=== PATIENT | female | born 1945 | race Caucasian/White ===

== ENCOUNTER 2018-10-05 12:56 | Outpatient (REF) | payer MEDICARE, SELFPAY ==
[2018-10-05 20:14] LABS: Bilirubin Negative (Negative); Blood Trace-intact (Negative); Clarity Clear; Glucose Negative (Negative); Ketones Negative (Negative); Leukocyte Esterase Negative (Negative); Nitrite Positive (Negative); Specific Gravity 1.015 (1.005-1.025); Urobilinogen 0.2 EU/dL (Up TO 0.2)
[2018-10-05 20:33] LABS: Bacteria Many HPF (Negative); Casts Negative LPF (Negative); Crystals Negative HPF (Negative); Epithelial Cells Negative HPF (Negative); Mucus Negative (Negative); RBC Negative (0-2)
[2018-10-05 20:34] LABS: C & S Indicated? Yes
[2018-10-05 20:35] LABS: Anion Gap 10.2 mmol/L (3-11); BUN 23 mg/dL (7-18); CO2 29.8 mmol/L (21.0-32.0); CREATININE 0.79 mg/dL (0.55-1.02); Calcium 9.3 mg/dL (8.5-10.1); Chloride 103 mmol/L (98-107); Cholesterol 272 mg/dL (50-200); Glucose 87 mg/dL (70-100); HDL Cholesterol 65 mg/dL (40-60); LDL CHOLESTEROL 172 mg/dL (<100); Sodium 143 mmol/L (136-145); TSH (W/Ref FT4) 1.91 uIU/mL (0.358-3.74); Triglyceride 112 mg/dL (30-150)
[2018-10-08 10:11] LABS: Hepatitis C Ab w Rflx HCV PCR Negative (NEGAT)
== END 2018-10-05 13:16 ==
LOC: NCHCN 12:56
PROVIDERS: PCP Internal Medicine; Visit Provider Internal Medicine
DX: I10 Essential (primary) hypertension (principal); Z11.59 Encounter for screening for other viral diseases
CPT/HCPCS: 80048; 80061; 83721; 86803; 87077; 81003; 81015; 84443; 87086; 87186

== ENCOUNTER 2018-10-11 00:38 | Outpatient (CLI) | payer MEDICARE, SELFPAY ==
--- NOTE | 2018-10-11 10:00 | DI.MAMMO_ITS ---
SYMPTOMS/DIAGNOSIS: SCREENING, Z12.39 MAMMOGRAMS: Mammograms were interpreted according to the usual protocol including computer analysis with CAD system, tomosynthesis and C view imaging. The breasts are of moderate density with fairly symmetrical distribution of fibroglandular tissue. No dominant mass or clumped microcalcification is identified in either breast. There is an area of focal asymmetric density projecting in the central portion of the right breast on MLO view. No previous images available for comparison. Additional mammographic views of the right breast requested to rule out a mass or architectural distortion at this site. CONCLUSION: Additional mammographic views of the right breast requested as described above to include MLO spot compression view of the right breast. Breast ultrasound may be indicated as well depending on the results of the additional mammographic views. Category 0, breast density category B. MQSA ASSESSMENT OF FINDINGS: Incomplete: Needs additional imaging evaluation. Category 0. Patient will receive a letter notifying them of these results. BI-RADS category B. There are scattered areas of fibroglandular density.
== END 2018-10-11 00:58 ==
PROVIDERS: PCP Internal Medicine; Visit Provider Internal Medicine
DX: Z12.31 Encounter for screening mammogram for malignant neoplasm of breast (principal); R92.8 Other abnormal and inconclusive findings on diagnostic imaging of breast
CPT/HCPCS: 77063; 77067

== ENCOUNTER 2018-10-18 00:23 | Outpatient (CLI) | payer MEDICARE, SELFPAY ==
--- NOTE | 2018-10-18 10:04 | DI.COMBO_ITS ---
SYMPTOM/DIAGNOSIS: F/U MAMMO, ASYMMETRICAL DENSITY RT BREAST RIGHT BREAST ADDITIONAL VIEW AND RIGHT BREAST ULTRASOUND: Additional images are interpreted according to the usual protocol including tomosynthesis and 2D imaging. Additional mammographic views of the right breast and right breast ultrasound are interpreted in conjunction. These examinations were obtained to evaluate a questionable area of asymmetric density seen on recent mammogram. Additional mammographic views fail to show a discrete mass. Breast ultrasound shows no evidence of a mass or cyst. CONCLUSION: No specific evidence of malignancy at this time. A follow up unilateral right breast mammogram is recommended in 6 months. Category 3. Breast density, category B. MQSA ASSESSMENT OF FINDINGS: Probably benign. Six month follow-up recommended. Category 3. Patient will receive a letter notifying them of these results. BI-RADS category B. There are scattered areas of fibroglandular density.
== END 2018-10-18 00:43 ==
PROVIDERS: PCP Internal Medicine; Visit Provider Internal Medicine
DX: Z12.31 Encounter for screening mammogram for malignant neoplasm of breast (principal); R92.8 Other abnormal and inconclusive findings on diagnostic imaging of breast; N64.59 Other signs and symptoms in breast
CPT/HCPCS: 76642; 77063; 77067

== ENCOUNTER 2019-02-07 08:21 | Outpatient (REF) | payer MEDICARE, SELFPAY ==
[2019-02-07 11:59] LABS: Anion Gap 10.6 mmol/L (3-11); BUN 21 mg/dL (7-18); CO2 27.4 mmol/L (21.0-32.0); CREATININE 0.95 mg/dL (0.55-1.02); Calcium 8.5 mg/dL (8.5-10.1); Calculated LDL 95 mg/dL; Chloride 106 mmol/L (98-107); Cholesterol 176 mg/dL (50-200); Estimated GFR 57.82 (mL/min/1.73m2); Glucose 87 mg/dL (70-100); HDL Cholesterol 71 mg/dL (40-60); Potassium 3.6 mmol/L (3.5-5.1); Sodium 144 mmol/L (136-145); Triglyceride 50 mg/dL (30-150)
== END 2019-02-07 08:41 ==
LOC: NCHCN 08:21
PROVIDERS: PCP Internal Medicine; Visit Provider Family Medicine
DX: E78.5 Hyperlipidemia, unspecified (principal); I10 Essential (primary) hypertension
CPT/HCPCS: 80048; 80061; 83721

== ENCOUNTER 2019-04-23 01:26 | Outpatient (CLI) | payer MEDICARE, SELFPAY ==
--- NOTE | 2019-04-23 09:20 | DI.MAMMO_ITS ---
EXAM: [facility] MAMMO DIAGNOSTIC UNI CLINICAL HISTORY: DIAGNOSTIC, 6 MO F/U, F/U ABNL MAMMO TECHNIQUE: Additional images are interpreted according to the usual protocol including tomosynthesis and 2D imaging. COMPARISON: DIAGNOSTIC RIGHT MAMMO DIGITAL from 07/04/2008 RIGHT BREAST ULTRASOUND from 07/04/2008 [facility] mammo screening from 10/11/2018 [facility] mammo screen call back UNI from 10/18/2018 FINDINGS: Bilateral full field digital CC and MLO mammographic images were obtained with 3D tomosynthesis and u tilizing computer aided detection (CAD). Bilateral full field digital CC and MLO mammographic images were obtained with 3D tomosynthesis and utilizing computer aided detection (CAD). The right breast is composed of scattered fibroglandular densities, breast density category B. A bio psy marker clip is again noted in the lower inner quadrant. Previously questioned area of density on the MLO view is not seen on the current exam. No new or suspicious findings are seen. IMPRESSION: BI-RADS category 1, negative. Bilateral screening should be resumed in 6 months.
== END 2019-04-23 01:46 ==
PROVIDERS: PCP Internal Medicine; Visit Provider Internal Medicine
DX: Z12.31 Encounter for screening mammogram for malignant neoplasm of breast (principal); R92.8 Other abnormal and inconclusive findings on diagnostic imaging of breast; N64.59 Other signs and symptoms in breast
CPT/HCPCS: 77061; 77065; G0279

== ENCOUNTER 2019-07-11 02:16 | Outpatient (CLI) | payer MEDICARE, SELFPAY ==
--- NOTE | 2019-07-11 15:50 | DI.DEXA_ITS ---
EXAM: XR DEXA BONE DENSITY W/WO [place] CLINICAL HISTORY: MENOPAUSAL STATE Z78.0 TECHNIQUE: DEXA scan was performed according to the usual protocol. COMPARISON: Prior study of June 2008 FINDINGS: Findings for left hip scanning are T-score -1.6 with a left femoral neck T-score -2.2. Prior study o f June 2008 showed left hip T-score -0.4. Lumbar spine scanning shows T-score -2.9, prior study of 2007 showed lumbar T-score -2.5. Left forearm scanning shows T-score -1.0. IMPRESSION: Findings consistent with osteoporosis according to the WHO criteria. Lateral vertebral scanogram merritt ws no evidence of a vertebral compression fracture.
== END 2019-07-11 02:36 ==
PROVIDERS: PCP Internal Medicine; Visit Provider Internal Medicine
DX: M81.0 Age-related osteoporosis without current pathological fracture (principal); Z78.0 Asymptomatic menopausal state
CPT/HCPCS: 77080

== ENCOUNTER 2021-01-01 13:45 | Outpatient (REF) | payer MEDICARE, SELFPAY ==
[2021-01-01 21:19] LABS: Anion Gap 9.6 mmol/L (3-11); BUN 19 mg/dL (7-18); CO2 29.4 mmol/L (21.0-32.0); Calcium 8.9 mg/dL (8.5-10.1); Calculated LDL 77 mg/dL (<100); Chloride 106 mmol/L (98-107); Cholesterol 175 mg/dL (<200); Glucose 86 mg/dL (74-106); HDL Cholesterol 81 mg/dL (40-60); Potassium 4.3 mmol/L (3.5-5.1); Sodium 145 mmol/L (136-145); Triglyceride 89 mg/dL (<150)
== END 2021-01-01 13:46 | disposition home or self-care (01) ==
LOC: NCHCN 13:45
PROVIDERS: PCP Internal Medicine; Visit Provider Internal Medicine
DX: E78.5 Hyperlipidemia, unspecified (principal); I10 Essential (primary) hypertension; M81.0 Age-related osteoporosis without current pathological fracture; Z74.8 Other problems related to care provider dependency
CPT/HCPCS: 80048; 80061

== ENCOUNTER 2022-01-06 19:17 | Outpatient (REF) | payer MEDICARE, SELFPAY ==
[2022-01-06 14:27] LABS: Anion Gap 5.8 mmol/L (3-11); BUN 21 mg/dL (7-18); CO2 30.2 mmol/L (21.0-32.0); CREATININE 0.9 mg/dL (0.55-1.02); Calcium 8.9 mg/dL (8.5-10.1); Chloride 104 mmol/L (98-107); Glucose 87 mg/dL (74-106); Sodium 140 mmol/L (136-145)
== END 2022-01-06 19:18 | disposition home or self-care (01) ==
LOC: NCHCN 19:17
PROVIDERS: PCP Internal Medicine; Visit Provider Internal Medicine
DX: I10 Essential (primary) hypertension (principal); E78.5 Hyperlipidemia, unspecified; R63.4 Abnormal weight loss
CPT/HCPCS: 80048

== ENCOUNTER → 2022-02-02 01:34 | Outpatient (CLI) | payer MEDICARE, SELFPAY ==
--- NOTE | 2022-02-02 | DI.MAMMO_ITS ---
Exam(s) MAMMO SCREENING EXAM: MAMMO SCREENING CLINICAL HISTORY: SCREENING FOR BREAST CANCER Z12.39 TECHNIQUE: Mammograms were interpreted according to the usual protocol including computer analysis w [employer] CAD system, tomosynthesis and C-view imaging. COMPARISON: 2019 FINDINGS: The breasts are composed of scattered fibroglandular densities, Breast Density category B. No suspicious masses or suspicious microcalcifications are seen. No skin thickening or abnormal axillary lymph nodes are seen. A biopsy marker clip is again noted in the inferomedial right breast. There has been no significant change from prior exams. IMPRESSION: BI-RADS Category 1, Negative mammogram Yearly screening mammography is recommended. Breast Density - Category B, scattered fibroglandular densities. A negative radiographic report should not delay biopsy if a dominant or clinically suspicious mass is present. Up to ten percent of cancers are not identified on mammography. A negative report may reinforce clinical impression. Adenosis and dense breasts may obscure an underlying neoplasm. False positive reports average 6 to 10%. Patient will receive a letter notifying them of these results.
== END ==
PROVIDERS: PCP Internal Medicine; Visit Provider Internal Medicine
DX: Z12.31 Encounter for screening mammogram for malignant neoplasm of breast (principal)
CPT/HCPCS: 77063; 77067